=== PATIENT | female | born 1980 | race Two or more races ===

== ENCOUNTER 2020-06-30 13:08 | Emergency (ER) | payer SELFPAY ==
[~2020-06-30] VITALS: Ht 157.5 cm; Wt 59.0 kg
[2020-06-30] MEDS ORDERED: ACETAMINOPHEN 500 MG TAB PO ONE (14:45)
[2020-06-30] MEDS ORDERED: cefTRIAXone SOD 1,000 MG VL IM ONE (14:45)
[2020-06-30 16:10] VITALS: BP 140/85
== END 2020-06-30 16:15 | disposition home or self-care (01) ==
LOC: ER 13:08
DX: U07.1 COVID-19 (principal); J40 Bronchitis, not specified as acute or chronic
CPT/HCPCS: 71045; 96372; 99283; J0696